=== PATIENT | female | born 1985 | race Caucasian/White ===

== ENCOUNTER 2020-07-11 16:39 | Emergency (ER) | payer MEDICAID, SELFPAY ==
[2020-07-11 16:41] VITALS: BP 126/68; PULSE 102; RESP 16; TEMP 36.2; O2SAT 98; BMI 36.8
--- NOTE | 2020-07-11 17:27 | US_ITS ---
STUDY: SECOND AND THIRD TRIMESTER OBSTETRICAL ULTRASOUND REASON FOR EXAM: Female, 35 years old , pelvic pain TECHNIQUE: Transabdominal PRIOR ULTRASOUND: None. FINDINGS: There is a single intrauterine fetus. The fetus is in a cephalic presentation. There is demonstrated cardiac activity with a heart rate of 139 bpm. There is a normal amniotic fluid volume. The largest amniotic fluid pocket measures 4.2 cm. The placenta is posterior and not low lying. There are Grade 1 placental changes. The cervix measures 4.1 cm in length. The bilateral adnexal regions are normal. BPD: 5.2 cm = 22 weeks, 0 day(s) HC: 21.2 cm = 23 weeks, 2 day(s) AC: 18.5 cm = 23 weeks, 3 day(s) FL: 4cm = 23 weeks, 1 day(s) EGA by ultrasound: 23 weeks 0 day(s) ANA by ultrasound: 11/07/2020 Estimated weight: 567 grams US/OB Limited With Biometrics IMPRESSION: Living intrauterine with estimated gestational age of 23 weeks and 0 days. Electronically Signed: Lawrence Stephens MD at 19:10 EDT Tel , Service support ,
--- NOTE | 2020-07-11 17:28 | ED.VIS.FEGU ---
HPI HPI - Female History of Present Illness Chief Complaint: Abd Pain Informant: patient Pain Pain: Positive for Pelvic Pain Onset: Days (several) Context: Gradual Onset Timing: Continuous Quality: Positive for Aching Location: Suprapubic Current Severity: Moderate Maximum Severity: Moderate Worsened by: - (nothing) Relieved by: - (nothing) Bleeding Issue: Negative for Vaginal bleeding Vaginal Discharge Severity: - (no discharge) Associated Symptoms Associated Symptoms: Positive for Irregular Period; Negative for Dysuria, Frequency, Urgency and Hematuria Last known menstrual period: months ago Test: Positive, Urine and Home (and in ER at [place] today) Sexually: Positive for Active (1 wk ago last time) Narrative Narrative: Patient has not had a menstrual cycle for several months, she had a home test that was positive after having intercourse a week ago, and she started developing suprapubic abdominal pain several days ago. She went to a local emergency department, they were not able to perform needed tests, so they sent her here after a positive urine . Patient denies any systemic symptoms, nausea, vomiting, diarrhea, urinary symptoms, or vaginal symptoms. Pain does not radiate. PFSH PFSH Medical History Anxiety and depression Chronic pain Diabetes Smoker Allergy/AdvReac Type Severity Reaction Status Date / Time No Known Allergies Allergy Verified 07/11/20 16:43 Social History (Updated 07/11/20 @ 17:[address] Ricco Sunshine MD) Smoking Status: Current every day smoker substance use type: does not use ROS ROS ED Constitutional Constitutional ED: Denies chills or fever(s) Eyes Eyes: Denies change in vision or diplopia ENT ENT ED: Denies rhinorrhea or sore throat Cardiovascular Cardiovascular: Denies chest pain or palpitations Respiratory/Chest Respiratory/Chest: Denies cough or dyspnea Gastrointestinal Gastrointestinal: Reports as per HPI and abdominal pain; Denies diarrhea, nausea or vomiting Genitourinary Genitourinary ED: Denies dysuria or hematuria Musculoskeletal Musculoskeletal: Denies back pain or neck pain Integumentary Denies abscess or rash Neurologic Neurologic: Denies headache(s), paresthesias or weakness Psychiatric Psychiatric: Denies anxiety or suicidal thoughts EXAM Physical Exam Const Vital Signs: 07/11/20 16:41 07/11/20 18:50 Temperature 97.2 F L Temperature Source Temporal Pulse Rate 102 H 90 Respiratory Rate 16 16 Blood Pressure 126/68 H 131/73 H Blood Pressure Mean 87 92 Pulse Ox 98 98 Oxygen Delivery Method Room Air Room Air Positive well nourished and well developed General Appearance ED: well developed and NAD HEENT Reports moist mucous membranes normocephalic and atraumatic Eyes PERRL and EOMs intact bilaterally Neck full ROM and supple Resp normal respiratory effort and clear to auscultation bilaterally Cardio regular rate, regular rhythm and no murmurs Rate: Negative for tachycardic GI non-distended Auscultation: normoactive bowel sounds Palpation: soft and tender suprapubic (Only. Mildly tender. No palpable mass or distended uterus.) Back/Spine no CVA tenderness General Back: other FROM Extremity normal to inspection General Extremety ED: Negative for edema, pulses abnormal or tenderness General Extremity: Negative for edema or pulses abnormal Neuro oriented x3, CN's II-XII intact bilaterally and no sensory deficits noted Sensorium / Orientation: awake and alert Motor Exam: strength 5/5 throughout Skin no rashes or lesions noted and no wounds MDM MDM MDM Narrative Medical decision making narrative: Ultrasound was completed, the quality assurance lab technician told the patient that she was around 23 weeks along and the patient states that as a result she does not want to wait for the results and wants to leave. She has not yet given urine for urinalysis. Her quantitative hCG is not back but after reviewing the images, she does have a single live intrauterine with heart tones 139, and no sign of a heterotopic . Patient understands that she is leaving without a complete work-up, she was given OB contact information to follow-up with. Lab Data Attestation: I reviewed the patient's lab results. Labs: Laboratory Results - last 24 hr 07/11/20 07/11/20 17:47 17:47 WBC 9.8 RBC 3.76 L Hgb 11.3 L Hct 33.9 L MCV 90.2 MCH 30.1 MCHC 33.3 RDW Std Deviation 41.8 RDW Coeff of Kiah 12.6 Plt Count 251 MPV 9.6 Immature Gran % (Auto) 0.400 Neut % (Auto) 72.6 H Lymph % (Auto) 18.4 L [place] % (Auto) 5.4 Eos % (Auto) 2.8 Baso % (Auto) 0.4 Absolute Neuts (auto) 7.1 Absolute Lymphs (auto) 1.80 Nucleated RBC % 0 Blood Type B POSITIVE Discharge Plan Triage Chief Complaint: Abd Pain ED Provider: Ricco Sunshine Dx/Rx/DC Orders Clinical Impression: Second trimester , Abdominal pain affecting , antepartum Instructions: ED Pelvic Pain Preg UKO 2 or 3 Tri Referrals: Yudi Katz MD [STAFF PHYSICIAN] - (call for appt unless you have another OB to see) Disposition Disposition: Home, self care
[2020-07-11 17:56] LABS: Absolute Neutrophil Count 7.1 X10^3/uL (2.0-7.7); Basophil# 0.04 X10^3/uL; Basophil% 0.4 % (0-1); Eosinophil# 0.27 X10^3/uL; Eosinophils% 2.8 % (0-5); Hematocrit 33.9 % (37-47); Hemoglobin 11.3 g/dL (12.0-15.0); Lymphocyte % 18.4 % (19-41); Mean Corp Hgb Conc 33.3 g/dL (32-36); Mean Corpuscular Hgb 30.1 pg (27.0-32.0); Mean Corpuscular Volume 90.2 fL (81-99); Mean Platelet Vol. 9.6 fl (6.2-12.0); Monocyte# 0.53 X10^3/uL; Monocyte% 5.4 % (0-10); NRBC Flagged by Analyzer 0 % (0-5); Neutrophil # 7.12 X10^3/uL (2.7-7.7); Neutrophil % 72.6 % (47-70); Platelet Count 251 K/mm3 (150-450); RBC Distribution Width CV 12.6 % (11.6-14.6); RBC Distribution Width SD 41.8 fl (35.1-43.9); Red Blood Count 3.76 M/mm3 (4.2-5.4); White Blood Count 9.8 K/mm3 (4.4-11.0)
[2020-07-11 18:50] VITALS: BP 131/73; PULSE 90; RESP 16; O2SAT 98
[2020-07-11 19:16] VITALS: BP 125/80; PULSE 91; RESP 16; O2SAT 98
[2020-07-11 19:41] LABS: hCG Titer Quant., Serum 12646 mIU/mL (1-3)
== END 2020-07-11 19:17 | disposition home or self-care (01) ==
PROVIDERS: Emergency Provider Emergency Medicine
DX: O26.892 Other specified pregnancy related conditions, second trimester (principal); R10.2 Pelvic and perineal pain; R10.9 Unspecified abdominal pain; O09.512 Supervision of elderly primigravida, second trimester; O24.912 Unspecified diabetes mellitus in pregnancy, second trimester; O99.332 Smoking (tobacco) complicating pregnancy, second trimester; F17.200 Nicotine dependence, unspecified, uncomplicated; Z3A.23 23 weeks gestation of pregnancy
CPT/HCPCS: 76816; 84702; 85025; 86900; 86901; 99283; A4216